=== PATIENT | male | born 1970 | race Hispanic/Latino ===

== ENCOUNTER 2023-09-21 07:24 | Emergency (ER) | payer MEDICARE, MEDICAID ==
[2023-09-21 07:54] LABS: #Monocytes 0.7 thou/uL (0.11-0.59); #Neutrophils 7.5 thou/uL (1.40-6.50); %Basophils 0.3 % (0.0-1.0); %Eosinophils 0.5 % (0.0-10.0); %Lymphocytes 5.6 % (21.0-51.0); %Monocytes 7.9 % (0.0-10.0); %Neutrophils 85.4 % (42.0-75.0); Hematocrit 48.9 % (42.0-52.0); Hemoglobin 16.8 g/dL (14.0-18.0); Mean Corpuscular HGB CONC 34.4 g/dL (32.0-36.0); Mean Corpuscular Hemoglobin 30.7 pg (27.0-31.0); Mean Corpuscular Volume 89.2 fl (78.0-98.0); Mean Platelet Volume 10.9 fL (7.4-10.4); Platelet Count 167 10x3/uL (130-400); RBC Distribution Width 13.4 % (11.5-14.5); Red Blood Cell (RBC) Count 5.48 mill/uL (4.70-6.10); White Blood Cell (WBC) Count 8.7 10x3/uL (4.8-10.8)
[2023-09-21 08:20] LABS: Troponin I 0.014 ng/mL (< 0.028)
[2023-09-21 08:22] LABS: ALT (SGPT) 43 U/L (8-55); AST (SGOT) 31 U/L (5-34); Albumin 4.3 g/dL (3.5-5.0); Alkaline Phosphatase 84 U/L (40-110); Anion Gap 14 mmol/L (10-20); BUN (Urea Nitrogen) 18 mg/dL (8.4-25.7); Bilirubin, Total 0.5 mg/dL (0.2-1.2); Calc. Creatinine Clearance 0 mL/min (70-130); Calcium 8.9 mg/dL (7.8-10.44); Carbon Dioxide 21 mmol/L (22-29); Chloride 104 mmol/L (98-107); Estimated GFR 98; Globulin 3.3 g/dL (2.4-3.5); Glucose 149 mg/dL (70-105); Magnesium 1.8 mg/dL (1.6-2.6); Potassium 3.5 mmol/L (3.5-5.1); Protein, Total 7.6 g/dL (6.0-8.3); Sodium 135 mmol/L (136-145)
[2023-09-21] MEDS ORDERED: cefTRIAXone (ROCEPHIN) 2 GM VIAL ONE (08:27)
[2023-09-21] MEDS ORDERED: Azithromycin 500 MG VIAL ONE (08:28)
[2023-09-21] MEDS ORDERED: Acetaminophen 500 MG TAB ONE (08:28)
[2023-09-21] MEDS ORDERED: Ondansetron PF 4 MG/2 ML Vial ONE (08:29)
[2023-09-21 08:50] LABS: Bacteria/HPF None Seen HPF (None Seen); Bilirubin Negative (Negative); Blood, Urine Negative (Negative); CAUTI Indications for Culture Fever or rigors; Clarity Clear (Clear); Glucose, Urine (Dipstick) Normal (Negative); Ketone, Urine Negative (Negative); Leukocyte Negative Leu/uL (Negative); Nitrite Negative (Negative); Protein, Urine (Dipstick) 20 mg/dL (Neg-Trace); RBC/HPF 0-3 HPF (0-3); Specific Gravity, Urine 1.029 (1.002-1.036); Squamous Epithelial None Seen HPF (0-3); Urobilinogen Normal mg/dL (Less than 2); WBC/HPF 0-3 HPF (0-3); pH, Urine 6.5 (5.0-9.0)
[2023-09-21 08:54] LABS: Urine Culture Reflex No No
[2023-09-21 09:32] LABS: SARS-CoV-2 NAA Rapid Test Not Detected (NotDetected)
[2023-09-21] MEDS ORDERED: Iopamidol-370 76% 500 ML MDV (1 ML CHARGE) ONE (10:51)
[2023-09-21] MEDS ORDERED: Ketorolac Tromethamine 30 MG/ML VIAL ONE (11:14)
== END 2023-09-21 11:50 | disposition home or self-care (01) ==
LOC: ERS 07:24
DX: J10.1 Influenza due to other identified influenza virus with other respiratory manifestations (principal); J18.9 Pneumonia, unspecified organism; F17.210 Nicotine dependence, cigarettes, uncomplicated
CPT/HCPCS: 0240U; 71045; 74177; 76870; 80053; 81001; 83605; 83735; 84484; 85025; 87040; 87086; 93005; 93976; 94760; J0456; 36415; 96361; 96365; 96375; J0696; J1885; J2405